=== PATIENT | female | born 1990 | race Hispanic/Latino ===

== ENCOUNTER 2021-08-02 15:23 | Inpatient (IN) | payer MEDICAID, OTHER, SELFPAY ==
[2021-08-02 16:01] VITALS: BMI 29.5
[2021-08-02] MEDS ORDERED: Promethazine HCl 25 MG/ML VIAL IM PRN (17:02)
[2021-08-02] MEDS ORDERED: Methylergonovine 0.2 MG/ML VIAL IM PRN (17:02)
[2021-08-02] MEDS ORDERED: Ondansetron PF 4 MG/2 ML Vial IVP PRN ×2 (17:02→21:54)
[2021-08-02] MEDS ORDERED: Docusate 100 MG CAP PO PRN (17:02)
[2021-08-02] MEDS ORDERED: hydrALAZINE 20 MG/ML VIAL SLOW IVP PRN ×2 (17:02→21:54)
[2021-08-02] MEDS ORDERED: Ibuprofen 800 MG TAB PO PRN (17:02)
[2021-08-02] MEDS ORDERED: Misoprostol 200 MCG TAB PR PRN (17:02)
[2021-08-02] MEDS ORDERED: Lidocaine 1% (PF) 30 ML VIAL SC PRN (17:02)
[2021-08-02] MEDS ORDERED: Carboprost 250 MCG/ML AMP IM PRN (17:02)
[2021-08-02 18:11] LABS: Hemoglobin 11.5 g/dL (12.0-15.5); Mean Corpuscular HGB CONC 32.3 g/dL (32.0-36.0); Mean Corpuscular Hemoglobin 28.7 pg (27.0-33.0); Mean Corpuscular Volume 88.8 fl (81.6-98.3); Mean Platelet Volume 13.2 fl (7.4-10.4); Platelet Count 135 10x3/uL (150-450); RBC Distribution Width 13.9 % (11.5-14.5); Red Blood Cell (RBC) Count 4.01 10x6/uL (3.90-5.03); White Blood Cell (WBC) Count 8.2 10x3/uL (3.5-10.5)
[2021-08-02 18:12] LABS: Syphilis Antibody Nonreactive (Nonreactive); Syphilis Antibody Index 0.05 S/CO (<1.00 Non-Reactive)
[2021-08-02 18:13] LABS: Hep B Surf Ag Non-Reactive S/CO (NonReactive)
[2021-08-02 18:26] LABS: HBSAg Index 0.22 S/CO (0-0.99)
[2021-08-02 18:49] LABS: SARS-CoV-2 NAA Rapid Test Not Detected (NotDetected)
[2021-08-02] MEDS: NS w/ Oxytocin 30 units 500 ML IV SCH ×2 (20:16→22:06)
[2021-08-02] MEDS ORDERED: Lanolin Ointment 7 GM TUBE TOP PRN (21:54)
[2021-08-02] MEDS ORDERED: Bisacodyl 10 MG SUPP PR PRN (21:54)
[2021-08-02] MEDS ORDERED: Boostrix 0.5 ML (Tdap) VIAL IM ONE (21:54)
[2021-08-02] MEDS ORDERED: Milk Of Magnesia 30 ML UDCUP PO PRN (21:54)
[2021-08-02] MEDS ORDERED: Preparation H Ointment 28 GM TUBE PR PRN (21:54)
[2021-08-02] MEDS ORDERED: diphenhydrAMINE 25 MG CAP PO PRN (21:54)
[2021-08-02] MEDS ORDERED: Benzocaine-Menthol 82.5 ML CAN TOP PRN (21:54)
[2021-08-03] MEDS ORDERED: Acetaminophen 500 MG TAB PO PRN ×2 (00:03→00:06)
[2021-08-03] MEDS: Ibuprofen 800 MG TAB PO SCH ×4 (00:56→21:50)
[2021-08-03] MEDS: Ferrous Sulfate 325 MG TAB PO SCH ×2 (07:19→16:36)
[2021-08-03] MEDS: Prenatal Vitamin 1 TAB PO SCH (08:29)
[2021-08-03] MEDS: Docusate Calcium (SURFAK) 240 MG CAP PO SCH ×2 (08:29→21:51)
[2021-08-04] MEDS: Ibuprofen 800 MG TAB PO SCH (06:15)
[2021-08-04] MEDS: Ferrous Sulfate 325 MG TAB PO SCH (07:29)
[2021-08-04 08:05] VITALS: BP 99/51; TEMP 99.2
[2021-08-04] MEDS: Docusate Calcium (SURFAK) 240 MG CAP PO SCH (08:29)
[2021-08-04] MEDS: Prenatal Vitamin 1 TAB PO SCH (08:29)
[2021-08-04] MEDS ORDERED: Polyethylene Glycol 3350 17 GM Packet PO SCH (09:00)
== END 2021-08-04 12:45 | disposition home or self-care (01) | DRG 806 ==
LOC: CSHLD/OP 15:23 → CSHLD 18:08 → CSHPP 08-03 00:24
PROVIDERS: ADMIT Obstetrics & Gynecology; ATTEND Obstetrics & Gynecology
PROC: 10E0XZZ Delivery of Products of Conception, External Approach (ICD-10-PCS; principal; 2021-08-02)
PROC: 0KQM0ZZ Repair Perineum Muscle, Open Approach (ICD-10-PCS; 2021-08-02)
PROC: 10907ZC Drainage of Amniotic Fluid, Therapeutic from Products of Conception, Via Natural or Artificial Opening (ICD-10-PCS; 2021-08-02)
DX: O70.1 Second degree perineal laceration during delivery (principal); O86.4 Pyrexia of unknown origin following delivery; Z37.0 Single live birth; Z20.822 Contact with and (suspected) exposure to COVID-19; Z3A.39 39 weeks gestation of pregnancy
CPT/HCPCS: 36415; 85027; 86780; 86850; 86900; 86901; 87340; 99285; J2590; U0002

== ENCOUNTER 2023-10-12 11:56 | Day surgery (SDC) | payer MEDICAID | END 2023-10-12 15:38 | disposition home health service (06) | LOC: CSHLD/OP 11:56 | PROVIDERS: ATTEND Family Medicine | DX: O99.891 Other specified diseases and conditions complicating pregnancy (principal); R10.30 Lower abdominal pain, unspecified; O36.63X0 Maternal care for excessive fetal growth, third trimester, not applicable or unspecified; O99.013 Anemia complicating pregnancy, third trimester; D64.9 Anemia, unspecified; O09.33 Supervision of pregnancy with insufficient antenatal care, third trimester; Z79.899 Other long term (current) drug therapy; Z3A.39 39 weeks gestation of pregnancy | CPT/HCPCS: 76819; 99282 ==

== ENCOUNTER 2023-10-22 06:39 | Inpatient (IN) | payer MEDICAID, OTHER ==
[2023-10-22] MEDS ORDERED: Oxytocin 10 UNITS/ML VIAL ONE (07:05)
[2023-10-22] MEDS ORDERED: Misoprostol 200 MCG TAB ONE (07:05)
[2023-10-22] MEDS ORDERED: Lidocaine 1% (PF) 30 ML VIAL ONE (07:06)
[2023-10-22] MEDS ORDERED: hydrALAZINE 20 MG/ML VIAL SLOW IVP PRN ×2 (07:23→09:35)
[2023-10-22] MEDS ORDERED: Promethazine HCl 25 MG/ML VIAL IM PRN (07:23)
[2023-10-22] MEDS ORDERED: Lidocaine 1% (PF) 30 ML VIAL SC PRN (07:23)
[2023-10-22] MEDS ORDERED: Ondansetron PF 4 MG/2 ML Vial IVP PRN (07:23)
[2023-10-22] MEDS ORDERED: Ibuprofen 800 MG TAB PO PRN (07:23)
[2023-10-22] MEDS ORDERED: Oxytocin 30 units/NS 500 ML 500 ML ONE (07:23)
[2023-10-22] MEDS ORDERED: Acetaminophen 500 MG TAB PO PRN (07:23)
[2023-10-22] MEDS ORDERED: Oxytocin 30 units/NS 500 ML 500 ML IV SCH (07:30)
[2023-10-22] MEDS ORDERED: Oxytocin 10 UNITS/ML VIAL IM SCH (07:30)
[2023-10-22 08:09] VITALS: BMI 27.4
[2023-10-22 08:12] LABS: Hematocrit 39.4 % (34.9-44.5); Mean Corpuscular Volume 87.9 fl (81.6-98.3); Mean Platelet Volume 12.9 fl (7.4-10.4); Platelet Count 133 10x3/uL (150-450); Red Blood Cell (RBC) Count 4.48 10x6/uL (3.90-5.03); White Blood Cell (WBC) Count 7.9 10x3/uL (3.5-10.5)
[2023-10-22 08:56] LABS: Syphilis Antibody Nonreactive (Nonreactive); Syphilis Antibody Index 0.05 S/CO (<1.00 Non-Reactive)
[2023-10-22 08:58] LABS: HBSAg Index 0.19 S/CO (0-0.99); Hep B Surf Ag - L&D Non-Reactive S/CO (NonReactive)
[2023-10-22] MEDS ORDERED: Boostrix 0.5 ML (Tdap) VIAL (>/=7 yrs of age) IM ONE (09:35)
[2023-10-22] MEDS ORDERED: Milk Of Magnesia 30 ML UDCUP PO PRN (09:35)
[2023-10-22] MEDS ORDERED: Bisacodyl 10 MG SUPP PR PRN (09:35)
[2023-10-22] MEDS ORDERED: Docusate 100 MG CAP PO SCH (10:00)
[2023-10-22] MEDS ORDERED: Prenatal Vitamin 1 TAB PO SCH (10:00)
[2023-10-22] MEDS ORDERED: Ferrous Sulfate 325 MG TAB PO SCH (10:00)
[2023-10-22] MEDS: Ibuprofen 800 MG TAB PO SCH ×2 (14:56→21:06)
[2023-10-22] MEDS: Ferrous Sulfate 325 MG TAB PO SCH (16:45)
[2023-10-22] MEDS: Docusate 100 MG CAP PO SCH (21:06)
[2023-10-23] MEDS: Ibuprofen 800 MG TAB PO SCH (05:48)
[2023-10-23] MEDS: Ferrous Sulfate 325 MG TAB PO SCH (08:15)
[2023-10-23] MEDS: Docusate 100 MG CAP PO SCH (08:15)
[2023-10-23 08:49] VITALS: BP 109/63; TEMP 97.9
[2023-10-23] MEDS ORDERED: Prenatal Vitamin 1 TAB PO SCH (09:00)
== END 2023-10-23 13:05 | disposition home or self-care (01) | DRG 807 ==
LOC: CSHLD/OP 06:39 → CSHLD 06:48 → CSHPP 09:30
PROVIDERS: ADMIT Obstetrics & Gynecology; ATTEND Obstetrics & Gynecology
PROC: 10E0XZZ Delivery of Products of Conception, External Approach (ICD-10-PCS; principal; 2023-10-22)
PROC: 0HQ9XZZ Repair Perineum Skin, External Approach (ICD-10-PCS; 2023-10-22)
DX: O69.81X0 Labor and delivery complicated by cord around neck, without compression, not applicable or unspecified (principal); Z37.0 Single live birth; Z3A.40 40 weeks gestation of pregnancy; D64.9 Anemia, unspecified; O70.0 First degree perineal laceration during delivery; O99.03 Anemia complicating the puerperium
CPT/HCPCS: 85027; 86780; 86850; 86900; 86901; 87340; 99285; J2590